=== PATIENT | male | born 1980 | race Caucasian/White ===

== ENCOUNTER 2017-08-01 20:07 | Emergency (ER) | payer OTHER ==
[~2017-08-01] VITALS: Ht 185.4 cm; Wt 77.1 kg
[~2017-08-01 20:07] MED LIST: ALBU90OI INH; ALBU90OI6 INH; AMOX500 PO; CITA20 PO; HYDACE10B PO; HYDACE5 PO; METPRE4DP PO; NAPR550 PO; Naprosyn500 MG PO; Omeprazole20 M1 PO; PENVK500 PO; PERM5TC TOP; PRODEXEL PO; PROM25 PO; Pepcid40 MG PO; RXNAPNA550 PO; RXPENVK250 PO; Zithromax250 MG PO
[2017-08-01] MEDS ORDERED: IBUP800 PO (21:13)
[2017-08-01] MEDS ORDERED: CYCL10 PO (21:13)
== END 2017-08-01 21:31 | disposition home or self-care (01) ==
LOC: ER 20:07
DX: M54.5 Low back pain (principal); F17.200 Nicotine dependence, unspecified, uncomplicated; X50.9XXA Other and unspecified overexertion or strenuous movements or postures, initial encounter
CPT/HCPCS: 96372; 99283; J1885

== ENCOUNTER → 2017-12-11 | Outpatient (CLI) | payer OTHER ==
[~2017-12-11] MED LIST changes: +CYCL10 PO; +IBUP800 PO
[2017-12-11 11:42] LABS: Hematocrit 42.8 % (37.0-53.0); Hemoglobin 14.8 g/dL (13.5-17.5); Mean Corpuscular HGB Conc 34.6 g/dL (31.5-36.5); Mean Corpuscular Volume 96 fL (80-100); Mean Platelet Volume 11.1 fL (9.1-12.4); Platelet Count 241 K/mm3 (150-400); RDW Coefficient Variation 13.3 % (11.7-14.2); RDW Standard Deviation 47.5 fL (35.1-46.3); Red Blood Cell Count 4.48 M/mm3 (4.30-5.90); White Blood Cell Count 10.59 K/mm3 (4.00-11.30)
[2017-12-11 11:54] LABS: Alanine Aminotransfer (ALT/SGP 47 U/L (12-78); Albumin, Blood 4.3 g/dL (3.4-5.0); Albumin/Globulin Ratio 1.1 (0.8-1.8); Alk Phos 130 U/L (50-136); Anion Gap 7 mmol/L (6-16); Aspartate Aminotrans (AST/SGOT 31 U/L (12-37); Bilirubin, Total 0.4 mg/dL (0.1-1.0); Blood Urea Nitrogen 9 mg/dL (8-24); Bun/Creatinine Ratio 11.7 (12.0-20.0); CO2, Blood 25 mmol/L (21-32); Calcium, Blood 8.8 mg/dL (8.5-10.1); Chloride, Blood 103 mmol/L (98-108); Creatinine, Blood 0.77 mg/dL (0.60-1.20); Glomerular Filtration Rate >60 (60-); Glucose, Blood 115 mg/dL (70-99); Potassium, Blood 4.4 mmol/L (3.5-5.5); Sodium, Blood 135 mmol/L (136-145); Total Protein, Blood 8.3 g/dL (6.4-8.2)
[2017-12-11 12:15] LABS: BASOPHILS ABSOLUTE AUTO 0.03 K/mm3 (0.00-0.23); BASOPHILS PERCENT AUTO 0 % (0-2); EOSINOPHILS ABSOLUTE AUTO 0.18 K/mm3 (0.00-0.68); EOSINOPHILS PERCENT AUTO 2 % (0-6); Hematocrit 43.1 % (37.0-53.0); Hemoglobin 14.8 g/dL (13.5-17.5); IMMATURE GRAN ABSOLUTE AUTO 0.02 K/mm3 (0.00-0.10); IMMATURE GRAN PERCENT AUTO 0 % (0-1); LYMPHOCYTES ABSOLUTE AUTO 1.45 K/mm3 (0.84-5.20); LYMPHOCYTES PERCENT AUTO 13 % (21-46); MONOCYTES ABSOLUTE AUTO 1.04 K/mm3 (0.16-1.47); MONOCYTES PERCENT AUTO 10 % (4-13); Mean Corpuscular HGB 32.7 pg (26.0-34.0); Mean Corpuscular HGB Conc 34.3 g/dL (31.5-36.5); Mean Corpuscular Volume 95 fL (80-100); Mean Platelet Volume 11.1 fL (9.1-12.4); NEUTROPHILS ABSOLUTE AUTO 8.17 K/mm3 (1.96-9.15); NEUTROPHILS PERCENT AUTO 75 % (41-73); Platelet Count 245 K/mm3 (150-400); RDW Coefficient Variation 13.3 % (11.7-14.2); RDW Standard Deviation 47.7 fL (35.1-46.3); Red Blood Cell Count 4.52 M/mm3 (4.30-5.90); White Blood Cell Count 10.89 K/mm3 (4.00-11.30)
[2017-12-12 08:11] LABS: HBSAG SCREEN Negative (Negative); HEP A AB, IGM Negative (Negative); HEP B CORE AB, IGM Negative (Negative); HEP C VIRUS AB 0.1 (0.0-0.9)
== END ==
LOC: LAB SHORT 10:50 → LAB 10:50
PROVIDERS: Nurse Practitioner
DX: R10.9 Unspecified abdominal pain (principal); R21 Rash and other nonspecific skin eruption; R53.83 Other fatigue
CPT/HCPCS: 80053; 80074; 85025; 85027

== ENCOUNTER 2020-05-10 23:40 | Emergency (ER) | payer OTHER ==
[~2020-05-10] VITALS: Ht 185.4 cm; Wt 72.6 kg
[2020-05-11] MEDS ORDERED: OXYACE7.5T PO (00:23)
== END 2020-05-11 01:17 | disposition home or self-care (01) ==
LOC: ER 23:40
DX: S62.307A Unspecified fracture of fifth metacarpal bone, left hand, initial encounter for closed fracture (principal); F17.210 Nicotine dependence, cigarettes, uncomplicated; W22.01XA Walked into wall, initial encounter
CPT/HCPCS: 26605; 73120; 73130; 99283-25; A9270

== ENCOUNTER 2020-05-28 09:53 | Day surgery (SDC) | payer OTHER ==
[~2020-05-28] VITALS: Ht 185.4 cm; Wt 77.8 kg
[~2020-05-28 09:53] MED LIST changes: +OXYACE7.5T PO
--- NOTE | 2020-05-28 11:55 | NUR ---
Ambulatory in Day Surgery History, Chart, Medications and Allergies reviewed before start of procedure. Patient confirms NPO status and agrees with scheduled surgery. LS CLEAR, INTERMITTENT COUGH NOTED. PT HAS SPLINT TO L HAND.
--- NOTE | 2020-05-28 16:42 | NUR ---
PT TOLERATING SANDWICH, PUDDING AND ORAL FLUIDS. PT CALLED RIDE AND RIDE IS NOT AVAILABLE TILL 1800. PT IS LYING COMFORTABLY IN BED, LEFT ARM ELEVATED, WATCHING TV. VSS. PT STATES NO FURTHER NEEDS AT THIS TIME.
== END 2020-05-28 23:58 | disposition home or self-care (01) ==
LOC: ORSCMMR 09:53 → ORD 11:45 → ORSCMMR 23:58
PROVIDERS: Orthopaedic Surgery
PROC: 0PSQ04Z Reposition Left Metacarpal with Internal Fixation Device, Open Approach (ICD-10-PCS; principal; 2020-05-28 11:45)
DX: S62.395A Other fracture of fourth metacarpal bone, left hand, initial encounter for closed fracture (principal); S62.327A Displaced fracture of shaft of fifth metacarpal bone, left hand, initial encounter for closed fracture; F17.210 Nicotine dependence, cigarettes, uncomplicated; F41.9 Anxiety disorder, unspecified; Z79.899 Other long term (current) drug therapy
CPT/HCPCS: A9270; J0690; J1100; J1885; J2250; J2405; J2704; J3010; J7120

== ENCOUNTER 2021-12-07 18:45 | Emergency (ER) | payer OTHER ==
[~2021-12-07] VITALS: Ht 185.4 cm; Wt 77.1 kg
[2021-12-07] MEDS ORDERED: Vibramycin100 MG PO (22:35)
== END 2021-12-07 22:55 | disposition home or self-care (01) ==
LOC: ER 18:45
DX: M71.122 Other infective bursitis, left elbow (principal); F17.210 Nicotine dependence, cigarettes, uncomplicated
CPT/HCPCS: A9270; J1885

== ENCOUNTER 2022-02-02 13:48 | Emergency (ER) | payer OTHER ==
[~2022-02-02] VITALS: Ht 185.4 cm; Wt 72.6 kg
[~2022-02-02 13:48] MED LIST changes: +BACTRIM DS TAB1 EAC2 PO; +Vibramycin100 MG PO
[2022-02-02 14:15] LABS: BASOPHILS ABSOLUTE AUTO 0.04 K/mm3 (0.00-0.23); BASOPHILS PERCENT AUTO 0 % (0-2); EOSINOPHILS ABSOLUTE AUTO 0.05 K/mm3 (0.00-0.68); EOSINOPHILS PERCENT AUTO 0 % (0-6); Hematocrit 39.6 % (37.0-53.0); IMMATURE GRAN ABSOLUTE AUTO 0.13 K/mm3 (0.00-0.10); IMMATURE GRAN PERCENT AUTO 1 % (0-1); LYMPHOCYTES ABSOLUTE AUTO 1.23 K/mm3 (0.84-5.20); LYMPHOCYTES PERCENT AUTO 5 % (21-46); MONOCYTES ABSOLUTE AUTO 1.82 K/mm3 (0.16-1.47); MONOCYTES PERCENT AUTO 7 % (4-13); Mean Corpuscular HGB 33.3 pg (26.0-34.0); Mean Corpuscular HGB Conc 35.4 g/dL (31.5-36.5); Mean Corpuscular Volume 94 fL (80-100); NEUTROPHILS ABSOLUTE AUTO 22.15 K/mm3 (1.96-9.15); NEUTROPHILS PERCENT AUTO 87 % (41-73); Platelet Count 274 K/mm3 (150-400); RDW Coefficient Variation 13.4 % (11.7-14.2); RDW Standard Deviation 46.4 fL (35.1-46.3); Red Blood Cell Count 4.21 M/mm3 (4.30-5.90); White Blood Cell Count 25.42 K/mm3 (4.00-11.30)
[2022-02-02 14:36] LABS: Albumin, Blood 3.7 g/dL (3.4-5.0); Bilirubin, Total 0.6 mg/dL (0.1-1.0); Bun/Creatinine Ratio 14.3 (12.0-20.0); Calcium, Blood 9.4 mg/dL (8.5-10.1); Creatinine, Blood 0.98 mg/dL (0.60-1.20); Globulin, Blood 3.8 g/dL (2.2-4.0); Potassium, Blood 4.1 mmol/L (3.5-5.5); Total Protein, Blood 7.5 g/dL (6.4-8.2)
[2022-02-02] MEDS ORDERED: AMOCLA875 PO (20:22)
== END 2022-02-02 20:39 | disposition home or self-care (01) ==
LOC: ER 13:48
PROVIDERS: Physician Assistant
DX: S81.051A Open bite, right knee, initial encounter (principal); L02.415 Cutaneous abscess of right lower limb; L03.115 Cellulitis of right lower limb; D72.829 Elevated white blood cell count, unspecified; F17.210 Nicotine dependence, cigarettes, uncomplicated; Z23 Encounter for immunization; W54.0XXA Bitten by dog, initial encounter
CPT/HCPCS: 36415; 73560-RT; 73701; 80053; 83605; 85025; 90714; J0295; J1885; Q9967

== ENCOUNTER 2022-05-07 15:59 | Emergency (ER) | payer OTHER ==
[~2022-05-07] VITALS: Ht 185.4 cm; Wt 74.8 kg
[~2022-05-07 15:59] MED LIST changes: +AMOCLA875 PO; +Cipro500 MG PO
== END 2022-05-07 18:31 | disposition home or self-care (01) ==
LOC: ER 15:59
DX: T24.002D Burn of unspecified degree of unspecified site of left lower limb, except ankle and foot, subsequent encounter (principal); X08.8XXD Exposure to other specified smoke, fire and flames, subsequent encounter; F17.210 Nicotine dependence, cigarettes, uncomplicated
CPT/HCPCS: 99282

== ENCOUNTER 2023-04-22 11:02 | Emergency (ER) | payer OTHER ==
[~2023-04-22] VITALS: Ht 185.4 cm; Wt 86.2 kg
[2023-04-22 11:09] VITALS: BP 144/99
== END 2023-04-22 12:33 | disposition home or self-care (01) ==
LOC: ER 11:02
DX: K42.9 Umbilical hernia without obstruction or gangrene (principal); F17.210 Nicotine dependence, cigarettes, uncomplicated
CPT/HCPCS: 99283

== ENCOUNTER 2024-08-09 14:05 | Emergency (ER) | payer OTHER ==
[~2024-08-09] VITALS: Ht 185.4 cm; Wt 95.2 kg
[2024-08-09 14:42] VITALS: BP 154/104
[2024-08-09] MEDS ORDERED: Tetanus,Diphtheria Toxd Ped/Pf 0.5 ML VIAL IM ONE (14:45)
[2024-08-09] MEDS ORDERED: Diphth,Pertuss(Acell),Tet Vac 0.5 ML VIAL IM ONE (14:55)
== END 2024-08-09 16:38 | disposition home or self-care (01) ==
LOC: ER 14:05
DX: S61.211A Laceration without foreign body of left index finger without damage to nail, initial encounter (principal); W26.8XXA Contact with other sharp object(s), not elsewhere classified, initial encounter; I10 Essential (primary) hypertension
CPT/HCPCS: 12002; 73120; 90471; 90702; 90715; 99282-25